=== PATIENT | female | born 1995 | race Caucasian/White ===

== ENCOUNTER 2020-07-07 13:54 | Outpatient (CLI) | payer OTHER | END 2020-07-07 13:55 | disposition home or self-care (01) | LOC: COV 13:54 | PROVIDERS: ATTEND Family Medicine | DX: Z20.828 Contact with and (suspected) exposure to other viral communicable diseases (principal) ==

== ENCOUNTER 2020-09-15 18:30 | Outpatient (CLI) | payer OTHER | END 2020-09-15 18:31 | disposition home or self-care (01) | LOC: COV 18:30 | PROVIDERS: ATTEND Family Medicine | DX: Z20.828 Contact with and (suspected) exposure to other viral communicable diseases (principal) ==

== ENCOUNTER 2020-11-20 11:10 | Emergency (ER) | payer OTHER ==
[2020-11-20] MEDS ORDERED: SODIUM CHLORIDE 0.9% 1,000 ML IV STA (11:33)
[2020-11-20 11:50] LABS: BASOPHILS % (AUTO) 0.2 %; EOSINOPHILS # (AUTO) 0.1 10^3/uL (0.0-0.7); HGB - HEMOGLOBIN 11.7 g/dL (12.0-16.0); LYMPHOCYTES % (AUTO) 9.9 %; MEAN CORPUSCULAR HEMOGLOBIN 31.2 pg (27.0-31.0); MEAN CORPUSCULAR HGB CONC 34.2 g/dL (32.0-36.0); MEAN CORPUSCULAR VOLUME 91.2 fL (81.0-99.0); MEAN PLATELET VOLUME 8.7 fL (7.9-10.8); MONOCYTES # (AUTO) 0.6 10^3/uL (0.0-1.0); MONOCYTES % (AUTO) 5.7 %; NEUTROPHILS # (AUTO) 8.3 10^3/uL (1.5-6.6); NEUTROPHILS % (AUTO) 82.5 %; PLT - PLATELET COUNT 256 10^3/uL (130-450); RED BLOOD COUNT 3.75 10^6/uL (4.20-5.40); RED CELL DISTRIBUTION WIDTH 12.4 % (12.0-15.0); WHITE BLOOD COUNT 10.1 x10^3/uL (4.8-10.8)
[2020-11-20 12:02] LABS: ALBUMIN 3.2 g/dL (3.2-5.5); ALBUMIN/GLOBULIN RATIO 0.9 (1.0-2.2); ALKALINE PHOSPHATASE 88 IU/L (42-121); ALT ALANINE AMINOTRANSFERASE < 10 IU/L (10-60); AST ASPARTATE AMINOTRANSFERASE 14 IU/L (10-42); BILIRUBIN,TOTAL 0.4 mg/dL (0.2-1.0); BUN - BLOOD UREA NITROGEN 9 mg/dL (6-20); CALCIUM 9.7 mg/dL (8.5-10.3); CARBON DIOXIDE - CO2 22 mmol/L (21-32); CHLORIDE 100 mmol/L (101-111); CREATININE 0.7 mg/dL (0.4-1.0); GLUCOSE 121 mg/dL (70-100); SODIUM 135 mmol/L (135-145); TOTAL PROTEIN 6.6 g/dL (6.7-8.2)
[2020-11-20 12:45] LABS: BILIRUBIN,URINE NEGATIVE (NEGATIVE); GLUCOSE, URINE (UA) NEGATIVE (NEGATIVE); KETONES,URINE (UA) NEGATIVE (NEGATIVE); LEUKOCYTE ESTERASE, URINE SMALL (NEGATIVE); NITRITE,URINE NEGATIVE (NEGATIVE); OCCULT BLOOD,URINE NEGATIVE (NEGATIVE); PROTEIN,URINE NEGATIVE (NEGATIVE); UROBILINOGEN,URINE 0.2 (NORMAL) E.U./dL (NORMAL)
[2020-11-20 12:46] LABS: CLARITY,URINE HAZY (CLEAR)
[2020-11-20 12:54] LABS: BACTERIA,URINE Moderate /HPF (None Seen); MUCUS,URINE Moderate Strands; RBC,URINE 0-5 /HPF (0-5); SQUAMOUS EPITHELIAL CELL,UR MANY Squamous (<= Few)
--- NOTE | 2020-11-20 13:16 | ED Physician Documentation ---
History of Present Illness - Stated complaint Stated Complaint: SYNCOPE - Chief complaint Chief Complaint: Neuro - History obtained from History obtained from: Patient - History of Present Illness Timing: Today Pain level max: 0 Pain level now: 0 - Additonal information Additional information: 25-year-old female, 1 para 0 presents to the emergency department after a syncopal event today. She is 31 weeks . She states she was standing when she felt lightheaded dizzy and warm. She sat down and passed out. No injuries. No abdominal pain. No vaginal bleeding or discharge. Nothing makes it better or worse. Has had near syncope in the past, but never actually passed out. No chest pain. No shortness of breath. Review of Systems Ten Systems: 10 systems reviewed and negative Constitutional: denies: Fever, Chills Respiratory: denies: Cough GI: denies: Abdominal Pain, Nausea, Vomiting, Diarrhea : denies: Dysuria, Frequency, Hesitancy, Incontinent Skin: denies: Rash Musculoskeletal: denies: Neck pain, Back pain PD PAST MEDICAL HISTORY - Past Medical History Past Medical History: Yes Cardiovascular: None Respiratory: Asthma Neuro: None Endocrine/Autoimmune: None GI: None IMPORT/[employer]: None : None HEENT: None Psych: None Musculoskeletal: None Derm: None - Past Surgical History Past Surgical History: No - Present Medications Home Medications: Ambulatory Orders Medication Instructions Recorded Confirmed cephALEXin [Keflex] 500 mg PO Q6H #20 capsule 11/20/20 - Allergies Allergies/Adverse Reactions: Allergies Allergy/AdvReac Type Severity Reaction Status Date / Time Sulfa (Sulfonamide Allergy Rash Verified 11/20/20 11:16 Antibiotics) - Social History Does the pt smoke?: No Smoking Status: Never smoker Does the pt drink ETOH?: No Does the pt have substance abuse?: No - Immunizations Immunizations are current?: Yes PD ED PE NORMAL - Vitals Vital signs reviewed: Yes - General General: Alert and oriented X 3, No acute distress, Well developed/nourished - HEENT HEENT: PERRL, Moist mucous membranes - Neck Neck: Supple, no meningeal sign - Cardiac Cardiac: RRR, Strong equal pulses - Respiratory Respiratory: No respiratory distress, Clear bilaterally - Abdomen Abdomen: Normal bowel sounds, Soft, Non tender, Other (Gravid uterus, nontender) - Derm Derm: Warm and dry - Extremities Extremities: No edema, No calf tenderness / cord - Neuro Neuro: Alert and oriented X 3 - Psych Psych: Normal mood, Normal affect Results - Vitals Vitals: Vital Signs - 24 hr 11/20/20 11/20/20 11/20/20 11:16 12:54 13:28 Temperature 37.1 C Heart Rate 89 87 80 Respiratory 19 18 18 Rate Blood Pressure 118/82 H 119/75 115/74 O2 Saturation 98 99 98 Oxygen O2 Source Room air - EKG (time done) 1119 Rate: Rate (enter#) (88) Rhythm: NSR [place]: Normal Intervals: Normal [place] QRS: Normal Ischemia: Normal ST segments - Labs Labs: Laboratory Tests 11/20/20 11/20/20 11/20/20 11:45 11:45 12:34 WBC 10.1 RBC 3.75 L Hgb 11.7 L Hct 34.2 L MCV 91.2 MCH 31.2 H MCHC 34.2 RDW 12.4 Plt Count 256 MPV 8.7 Neut # (Auto) 8.3 H Lymph # (Auto) 1.0 L Amelia # (Auto) 0.6 Eos # (Auto) 0.1 Baso # (Auto) 0.0 Absolute Nucleated RBC 0.00 Nucleated RBC % 0.0 Sodium 135 Potassium 3.8 Chloride 100 L Carbon Dioxide 22 Anion Gap 13.0 BUN 9 Creatinine 0.7 Estimated GFR (MDRD) 101 Glucose 121 H Calcium 9.7 Total Bilirubin 0.4 AST 14 ALT < 10 L Alkaline Phosphatase 88 Total Protein 6.6 L Albumin 3.2 Globulin 3.4 Albumin/Globulin Ratio 0.9 L Urine Color YELLOW Urine Clarity HAZY Urine pH 7.0 Ur Specific [place] 1.010 Urine Protein NEGATIVE Urine Glucose (UA) NEGATIVE Urine Ketones NEGATIVE Urine Occult Blood NEGATIVE Urine Nitrite NEGATIVE Urine Bilirubin NEGATIVE Urine Urobilinogen 0.2 (NORMAL) Ur Leukocyte Esterase SMALL H Urine RBC 0-5 Urine WBC 11-25 H Ur Squamous Epith Cells MANY Squamous H Urine Bacteria Moderate H Urine Mucus Moderate Strands Ur Microscopic Review INDICATED Urine Culture Comments NOT INDICATED PD MEDICAL DECISION MAKING - ED course Complexity details: reviewed results, re-evaluated patient, considered differential, d/w patient ED course: 25-year-old female with what sounds like vasovagal syncope today. No acute findings on EKG, telemetry, laboratory testing. Does have a UTI we will treat for this. NST is normal. Discussed the case with Dr. Cassidy, OB on-call. Patient will follow-up with her OB for further care. Patient counseled regarding signs and symptoms for which I believe and urgent re-evaluation would be necessary. Patient with good understanding of and agreement to plan and is comfortable going home at this time This document was made in part using voice recognition software. While efforts are made to proofread this document, sound alike and grammatical errors may occur. Departure - Departure Disposition: Home, Self Care Clinical Impression: Vasovagal syncope UTI (urinary tract infection) Qualifiers: Urinary tract infection type: acute cystitis Hematuria presence: without hematuria Qualified Code(s): N30.00 - Acute cystitis without hematuria Qualifiers: Weeks of gestation: 31 weeks Qualified Code(s): Z3A.31 - 31 weeks gestation of Condition: Good Instructions: ED Syncope Vasovagal, ED UTI Cystitis Female Follow-Up: BRIANA BECK [Primary Care Provider] - Within 1 week Prescriptions: cephALEXin [Keflex] 500 mg PO Q6H #20 capsule Comments: Take all antibiotics until gone. Drink plenty of fluids. Follow-up with your doctor for further care. Discharge Date/Time: 11/20/20 13:29
[2020-11-20 13:29] VITALS: BP 115/74
--- NOTE | 2020-11-20 15:30 | PROCEDURE REPORT ---
- HPI Diagnosis/Indication for NST: Other (syncope maternal) Current EDU 01/21/21 Gestation 31 Weeks and 1 Days 1 Para 0 Vital Signs Temperature 98.8 F 11/20/20 11:16 Heart Rate 89 11/20/20 11:16 Respiratory Rate 19 11/20/20 11:16 Blood Pressure 118/82 H 11/20/20 11:16 O2 Saturation 98 11/20/20 11:16 Temperature 98.8 F 11/20/20 11:16 Heart Rate 80 11/20/20 13:28 Respiratory Rate 18 11/20/20 13:28 Blood Pressure 115/74 11/20/20 13:28 O2 Saturation 98 11/20/20 13:28 - NST Procedure NST Procedure Start Date 11/20/20 Start Time 11:35 Stop Time 12:00 Vibroacoustic Stimulation Used No Patient States Movement Yes - Results and Plan Findings/Impression: Baseline: BPM 140 Variability: Moderate Accelerations: Present Decelerations: Absent Trends in FHR over time: no changes [place] contractions in 10 minutes: 0 Impression: reactive Category 1 NST NST done for ER patient being evaluated for syncope.
== END 2020-11-20 13:29 | disposition home or self-care (01) ==
LOC: EDUNIT# → ED 11:10
DX: O99.891 Other specified diseases and conditions complicating pregnancy (principal); R55 Syncope and collapse; O23.43 Unspecified infection of urinary tract in pregnancy, third trimester; Z3A.31 31 weeks gestation of pregnancy
CPT/HCPCS: 36415; 80053; 81001; 81003; 85025; 87086; 93005; 99284